=== PATIENT | male | born 1965 | race Caucasian/White ===

== ENCOUNTER → 2018-12-26 12:33 | Outpatient (CLI) | payer SELFPAY ==
--- NOTE | 2018-12-26 12:43 | CT_ITS ---
PROCEDURE: CT HEART W CALCIUM SCORE Patient Age:53Y CLINICAL HISTORY: SCREENING family history. Hypertension. Chest pain. COMPARISON: No exams were available for comparison TECHNIQUE: Limited axial images obtained through the heart for the purposes of calcium scoring . All CT scans at the facility use one or more dose reduction, viz: automated exposure control, ma/kV adjustment per patient size (including targeted exams where dose is matched to indication, i.e. head), or iterative reconstruction technique. FINDINGS: Total coronary calcium score is 34: . This reflects mild plaque burden with Moderate coronary vascular disease CVD risk The majority of the plaque was seen at the LAD and proximal-most left circumflex IMPRESSION: Total coronary calcium score is 34 . This reflects mild plaque burden with Moderate coronary vascular disease CVD risk . No pericardial effusion Left atrium is normal size left ventricle upper normal size The mild chronic lung changes; minor scarring most evident towards left CP angle Dictated by: Rafael Draper MD 12/29/2018 00:02 Electronically signed by Rafael Draper MD in [facility] 12/29/2018 00:02
== END ==
PROVIDERS: PCP Internal Medicine Cardiovascular Disease; Visit Provider Internal Medicine Cardiovascular Disease
DX: Z13.6 Encounter for screening for cardiovascular disorders (principal)
CPT/HCPCS: 75571